=== PATIENT | female | born 2000 | race Caucasian/White ===

== ENCOUNTER 2022-05-10 13:27 | Emergency (ER) | payer SELFPAY ==
[2022-05-10] MEDS ORDERED: Sodium Chloride 0.9% 10 ML Syringe FLUSH PRN (13:52)
[2022-05-10] MEDS ORDERED: HYDROmorphone 0.5 MG/0.5 ML Syringe IVPUSH ONE (13:53)
[2022-05-10] MEDS ORDERED: methylPREDNISolone Sodium Succinate 125 MG/2 ML SDV IVPUSH ONE (15:08)
== END 2022-05-10 16:13 | disposition home or self-care (01) ==
LOC: JD.ED 13:27
DX: M15.9 Polyosteoarthritis, unspecified (principal); M06.9 Rheumatoid arthritis, unspecified; Z79.899 Other long term (current) drug therapy; Z91.018 Allergy to other foods; Z88.1 Allergy status to other antibiotic agents
CPT/HCPCS: 36415; 80053; 85025; 85652; 86140; 86430; 93005; 96374; 99283; J2930; J3490; 93010; 99284

== ENCOUNTER 2022-07-19 00:51 | Emergency (ER) | payer MEDICAID ==
[2022-07-19] MEDS ORDERED: Sodium Chloride 0.9% 10 ML Syringe FLUSH PRN (01:10)
[2022-07-19] MEDS ORDERED: Ondansetron 4 MG/2 ML SDV IVPUSH ONE (01:12)
[2022-07-19] MEDS ORDERED: Sodium Chloride 0.9% 1,000 ML IV SCH ×2 (01:15→03:45)
[2022-07-19 01:17] LABS: BASOPHILS ABSOLUTE AUTO 0.03 K/mm3 (0.01-0.08); BASOPHILS PERCENT AUTO 0.2 % (0.1-1.2); EOSINOPHILS ABSOLUTE AUTO 0.02 K/mm3 (0.04-0.36); EOSINOPHILS PERCENT AUTO 0.1 (0.7-5.8); HEMATOCRIT 53.7 % (34.1-44.9); HEMOGLOBIN 17.5 gm/dl (11.2-15.7); IMMATURE GRAN ABSOLUTE AUTO 0.06 K/mm3 (0.00-0.10); IMMATURE GRAN PERCENT AUTO 0.4 % (<=1.0); LYMPHOCYTES ABSOLUTE AUTO 2.33 K/mm3 (1.18-3.74); LYMPHOCYTES PERCENT AUTO 13.6 % (19.3-51.7); MEAN CORPUSCULAR HEMOGLOBIN 26.4 pg (25.6-32.2); MEAN CORPUSCULAR HGB CONC 32.6 g/dl (32.2-35.5); MEAN CORPUSCULAR VOLUME 81.1 fl (79.4-94.8); MEAN PLATELET VOLUME 9.9 fl (9.4-12.3); MONOCYTES ABSOLUTE AUTO 1.42 K/mm3 (0.24-0.36); MONOCYTES PERCENT AUTO 8.3 % (4.7-12.5); NEUTROPHILS ABSOLUTE AUTO 13.21 K/mm3 (1.56-6.13); NEUTROPHILS PERCENT AUTO 77.4 % (34.0-71.1); PLATELET COUNT,PLT 369 K/mm3 (182-369); RED BLOOD CELL COUNT 6.62 M/mm3 (3.98-5.22); WHITE BLOOD CELL COUNT,WBC 17.07 K/mm3 (3.98-10.04)
[2022-07-19 01:35] LABS: INR 1.06; PROTHROMBIN TIME 11.3 SECONDS (9.7-12.0)
[2022-07-19 01:38] LABS: D-DIMER QUANTITATIVE 1.51 mg/L (0.19-0.50)
[2022-07-19 01:46] LABS: A/G RATIO 0.8 (1-2); ALANINE AMINOTRANSFERASE,ALT 21 U/L (14-59); ALBUMIN 3.2 g/dl (3.4-5.0); ALKALINE PHOSPHATASE 116 U/L (46-116); ANION GAP 11.5 (5-15); ASPARTATE AMNIOTRANSFERASE,AST 13 U/L (15-37); BILIRUBIN TOTAL 0.6 mg/dL (0.2-1.0); BLOOD UREA NITROGEN,BUN 5 mg/dL (7-18); BUN/CREATININE RATIO 7.1 (14-18); C-REACTIVE PROTEIN 5.5 mg/dL (<1.0); CALCIUM 9.4 mg/dL (8.5-10.1); CARBON DIOXIDE,CO2 27 mEq/L (21-32); CHLORIDE,CL 104 mEq/L (98-107); CREATININE 0.7 mg/dL (0.55-1.02); EST CRCL DRUG DOSING (CG) 95.13 mL/min; ESTIMATED GFR 125 mL/min (>60); GLUCOSE RANDOM 88 mg/dL (70-99); LIPASE 65 U/L (73-393); MAGNESIUM 1.9 mg/dL (1.8-2.4); POTASSIUM,K 3.5 mEq/L (3.5-5.1); PROTEIN TOTAL,TP 7.4 g/dl (6.4-8.2); SODIUM,NA 139 mEq/L (136-145); TROPONIN I HIGH SENSITIVITY 5 pg/mL (<=51)
[2022-07-19 01:47] LABS: APPEARANCE,URINE CLEAR (Clear); BILIRUBIN,URINE NEGATIVE (Negative); COLOR,URINE YELLOW (Yellow); GLUCOSE,URINE NEGATIVE (Negative); KETONES,URINE NEGATIVE (Negative); LEUKOCYTE ESTERASE,URINE NEGATIVE (Negative); NITRITE,URINE NEGATIVE (Negative); OCCULT BLOOD,URINE TRACE-INTACT (Negative); PROTEIN,URINE NEGATIVE (Negative); UROBILINOGEN,URINE 0.2 (0.2-1.0)
[2022-07-19 01:58] LABS: HCG QUANTITATIVE < 1.0 mIU/mL
[2022-07-19 02:17] LABS: RBC,URINE 0-5 /hpf (0-5); WBC,URINE 0-5 /hpf (0-5)
[2022-07-19 02:18] LABS: BACTERIA,URINE MODERATE /hpf (FEW); MUCUS,URINE MANY /hpf (FEW)
[2022-07-19 03:33] LABS: LACTIC ACID 3.1 mmol/L (0.4-2.0)
[2022-07-19] MEDS ORDERED: HYDROmorphone 1 MG/ML Syringe IVPUSH ONE (03:33)
[2022-07-19] MEDS ORDERED: Ketorolac 30 MG/ML SDV IVPUSH STA (03:47)
[2022-07-19] MEDS ORDERED: Iopamidol 755 Mg/ML 100 ML Bottle IVPUSH ONE (03:54)
[2022-07-19] MEDS ORDERED: Sodium Chloride 0.9% 100 ML IV SCH (04:00)
[2022-07-19] MEDS ORDERED: Famotidine 20 MG/2 ML SDV IVPUSH STA (05:34)
== END 2022-07-19 06:02 | disposition home or self-care (01) ==
LOC: JD.ED 00:51
DX: J18.9 Pneumonia, unspecified organism (principal); R10.9 Unspecified abdominal pain; Z88.6 Allergy status to analgesic agent; Z88.1 Allergy status to other antibiotic agents; Z91.048 Other nonmedicinal substance allergy status; Z79.899 Other long term (current) drug therapy
CPT/HCPCS: 36415; 71045; 71275; 74177; 80053; 81001; 83605; 83690; 83735; 83880; 84484; 84702; 85025; 85379; 85610; 86140; 87040; 93005; 96361; 96374; 96375; 99285; J1885; J2405; J3490; J7030; Q9967; 93010; 99284

== ENCOUNTER 2022-07-26 16:24 | Emergency (ER) | payer MEDICAID ==
[2022-07-26] MEDS ORDERED: Ondansetron 4 MG/2 ML SDV IVPUSH ONE (17:19)
[2022-07-26] MEDS ORDERED: Sodium Chloride 0.9% 1,000 ML IV ONE (17:19)
[2022-07-26] MEDS ORDERED: Ketorolac 30 MG/ML SDV IVPUSH ONE (17:19)
[2022-07-26] MEDS ORDERED: Sodium Chloride 0.9% 10 ML Syringe FLUSH PRN (17:19)
[2022-07-26] MEDS ORDERED: Dicyclomine 10 MG Cap PO ONE ×2 (17:21→20:13)
[2022-07-26 17:59] LABS: BASOPHILS ABSOLUTE AUTO 0.01 K/mm3 (0.01-0.08); BASOPHILS PERCENT AUTO 0.1 % (0.1-1.2); EOSINOPHILS PERCENT AUTO 0 (0.7-5.8); HEMATOCRIT 53.7 % (34.1-44.9); IMMATURE GRAN ABSOLUTE AUTO 0.03 K/mm3 (0.00-0.10); IMMATURE GRAN PERCENT AUTO 0.2 % (<=1.0); LYMPHOCYTES ABSOLUTE AUTO 0.89 K/mm3 (1.18-3.74); LYMPHOCYTES PERCENT AUTO 5.2 % (19.3-51.7); MEAN CORPUSCULAR HEMOGLOBIN 26.9 pg (25.6-32.2); MEAN CORPUSCULAR HGB CONC 33.5 g/dl (32.2-35.5); MEAN CORPUSCULAR VOLUME 80.4 fl (79.4-94.8); MEAN PLATELET VOLUME 9.9 fl (9.4-12.3); MONOCYTES ABSOLUTE AUTO 1.36 K/mm3 (0.24-0.36); NEUTROPHILS ABSOLUTE AUTO 14.77 K/mm3 (1.56-6.13); NEUTROPHILS PERCENT AUTO 86.5 % (34.0-71.1); PLATELET COUNT,PLT 309 K/mm3 (182-369); RED BLOOD CELL COUNT 6.68 M/mm3 (3.98-5.22); WHITE BLOOD CELL COUNT,WBC 17.06 K/mm3 (3.98-10.04)
[2022-07-26] MEDS ORDERED: Iopamidol 612 MG/ML 100 ML Bottle IVPUSH ONE (18:21)
[2022-07-26] MEDS ORDERED: Diatrizoate Meglumine/Diatrizoate Sodium 37% 120 ML Bottle PO ONE (18:35)
[2022-07-26 18:38] LABS: A/G RATIO 0.8 (1-2); ALANINE AMINOTRANSFERASE,ALT 16 U/L (14-59); ALBUMIN 3.5 g/dl (3.4-5.0); ALKALINE PHOSPHATASE 101 U/L (46-116); ANION GAP 17.4 (5-15); ASPARTATE AMNIOTRANSFERASE,AST 13 U/L (15-37); BILIRUBIN TOTAL 1.1 mg/dL (0.2-1.0); BLOOD UREA NITROGEN,BUN 9 mg/dL (7-18); BUN/CREATININE RATIO 12.9 (14-18); CALCIUM 9.6 mg/dL (8.5-10.1); CARBON DIOXIDE,CO2 25 mEq/L (21-32); CHLORIDE,CL 101 mEq/L (98-107); CREATININE 0.7 mg/dL (0.55-1.02); ESTIMATED GFR 125 mL/min (>60); GAMMA GLUTAMYL TRANSFERASE,GGT 39 U/L (5-55); GLUCOSE RANDOM 73 mg/dL (70-99); LIPASE 37 U/L (73-393); POTASSIUM,K 3.4 mEq/L (3.5-5.1); PROTEIN TOTAL,TP 7.8 g/dl (6.4-8.2); SODIUM,NA 140 mEq/L (136-145)
[2022-07-26 19:49] LABS: APPEARANCE,URINE CLEAR (Clear); BILIRUBIN,URINE 2+ (Negative); COLOR,URINE DARK YELLOW (Yellow); GLUCOSE,URINE NEGATIVE (Negative); KETONES,URINE 4+ (Negative); LEUKOCYTE ESTERASE,URINE NEGATIVE (Negative); NITRITE,URINE NEGATIVE (Negative); OCCULT BLOOD,URINE TRACE-LYSED (Negative); PROTEIN,URINE TRACE (Negative); UROBILINOGEN,URINE 0.2 (0.2-1.0)
[2022-07-26] MEDS ORDERED: Sucralfate 1 GM Tab PO ONE (20:12)
[2022-07-26 20:25] LABS: BACTERIA,URINE MODERATE /hpf (FEW); RBC,URINE 0-5 /hpf (0-5); WBC,URINE 0-5 /hpf (0-5)
[2022-07-26 20:26] LABS: CALCIUM OXALATE CRYSTALS,URINE MODERATE; MUCUS,URINE MANY /hpf (FEW)
== END 2022-07-26 20:35 | disposition home or self-care (01) ==
LOC: JD.ED 16:24
DX: K29.00 Acute gastritis without bleeding (principal); J45.909 Unspecified asthma, uncomplicated; M06.9 Rheumatoid arthritis, unspecified; Z88.5 Allergy status to narcotic agent; Z88.1 Allergy status to other antibiotic agents; Z91.018 Allergy to other foods; Z79.82 Long term (current) use of aspirin; Z79.899 Other long term (current) drug therapy
CPT/HCPCS: 36415; 74177; 80053; 81001; 82977; 83690; 83735; 85025; 86140; 96361; 96374; 96375; 99284; A9270; J1885; J2405; J3490; J7030; Q9963; Q9967